=== PATIENT | male | born 1995 | race American Indian/Alaskan Native ===

== ENCOUNTER 2021-09-07 00:37 | Inpatient (IN) | payer SELFPAY ==
[2021-09-07] MEDS ORDERED: ONDANSETRON 4 MG/2 ML INJ IV ONE (01:43)
[2021-09-07] MEDS ORDERED: SODIUM CHLORIDE 0.9% 1000 ML 1,000 ML IV ONE ×2 (01:43→02:50)
--- NOTE | 2021-09-07 01:48 | Emergency Department Report ---
ED General Adult HPI - General Chief complaint: Nausea/Vomiting/Diarrhea Stated complaint: DIABETES, VOMITING PUI?: No Time Seen by Provider: 09/07/21 01:42 Source: patient Mode of arrival: Ambulatory Limitations: No Limitations - History of Present Illness Initial comments: Patient is a 25-year-old male who presents emergency room with complaints of nausea vomiting. Patient states his symptoms are worsening. Patient complains of fatigue. Patient states he is a type I diabetic. Patient states that he has been out of his insulin for 3 days. Patient states post be taking Levemir and NovoLog. Patient states his blood sugar at home was reading high. Patient denies pain. Patient denies chest pain. Patient denies shortness of breath. Patient denies abdominal pain. Patient denies blood in his vomitus. Patient states he is not vaccinated against COVID-19. Patient denies recent travel. Patient denies recent international travel. Patient denies exposure to the novel coronavirus. Patient denies sick contacts. Patient denies fever and chills. Patient denies cough. Patient denies diarrhea. Patient denies coming in contact with anybody with symptoms of the novel coronavirus. -: Sudden Consistency: constant Improves with: rest Worsens with: eating, movement Associated Symptoms: malaise, nausea/vomiting. denies: confusion, chest pain, cough, diaphoresis, fever/chills, headaches, loss of appetite, rash, seizure, shortness of breath, syncope, weakness Treatments Prior to Arrival: none - Related Data Allergies Allergy/AdvReac Type Severity Reaction Status Date / Time No Known Allergies Allergy Verified 09/07/21 01:52 ED Review of Systems ROS: Stated complaint: DIABETES, VOMITING Other details as noted in HPI Constitutional: malaise. denies: chills, fever Eyes: denies: eye pain, eye discharge, vision change ENT: denies: ear pain, throat pain Respiratory: denies: cough, shortness of breath, wheezing Cardiovascular: denies: chest pain, palpitations Endocrine: no symptoms reported Gastrointestinal: nausea, vomiting. denies: abdominal pain, diarrhea Genitourinary: denies: urgency, dysuria Musculoskeletal: denies: back pain, joint swelling, arthralgia Skin: denies: rash, lesions Neurological: denies: headache, weakness, paresthesias Psychiatric: denies: anxiety, depression Hematological/Lymphatic: denies: easy bleeding, easy bruising ED Past Medical Hx - Past Medical History Previous Medical History?: Yes Hx Diabetes: Yes (Type I) - Surgical History Past Surgical History?: No - Family History Family history: no significant - Social History Smoking Status: Never Smoker Substance Use Type: None ED Physical Exam - General Limitations: No Limitations General appearance: alert, in no apparent distress - Head Head exam: Present: atraumatic, normocephalic - Eye Eye exam: Present: normal appearance - ENT ENT exam: Present: mucous membranes dry - Neck Neck exam: Present: normal inspection - Respiratory Respiratory exam: Present: normal lung sounds bilaterally. Absent: respiratory distress, wheezes, rales - Cardiovascular Cardiovascular Exam: Present: regular rate, normal rhythm. Absent: systolic murmur, diastolic murmur, rubs, gallop - GI/Abdominal GI/Abdominal exam: Present: soft, normal bowel sounds. Absent: distended, tenderness, guarding - Rectal Rectal exam: Present: deferred - Extremities Exam Extremities exam: Present: normal inspection - Back Exam Back exam: Present: normal inspection - Neurological Exam Neurological exam: Present: alert, oriented X3 - Psychiatric Psychiatric exam: Present: normal affect, normal mood - Skin Skin exam: Present: warm, dry, intact, normal color. Absent: rash ED Course Vital Signs 09/07/21 09/07/21 09/07/21 01:48 03:06 03:15 Temperature 98.9 F Pulse Rate 89 Respiratory 18 Rate Blood Pressure 123/72 O2 Sat by Pulse 99 97 97 Oximetry 09/07/21 09/07/21 09/07/21 03:31 03:45 04:01 Temperature Pulse Rate Respiratory Rate Blood Pressure 101/44 101/44 101/44 O2 Sat by Pulse 97 97 98 Oximetry 09/07/21 04:13 Temperature Pulse Rate Respiratory Rate Blood Pressure O2 Sat by Pulse 98 Oximetry - Reevaluation(s) Reevaluation #1: I discussed all results with patient. I discussed plan of care with patient. Patient agrees with plan of care and admission. Patient to be admitted to the hospitalist service. 12 units of insulin ordered. Patient already receiving IV fluids. 09/07/21 02:51 Reevaluation #2: Patient blood sugar still elevated. Patient received another 12 units and other liter of fluid. 09/07/21 04:25 - Consultations Consultation #1: Hospitalist consulted for admission. Hospitalist to admit patient. 09/07/21 02:54 ED Medical Decision Making - Lab Data Result diagrams: 09/07/21 01:50 09/07/21 01:50 - Medical Decision Making Patient is a 25-year-old male presents emergency room with intractable nausea vomiting and elevated blood sugar. Patient was insulin. Patient unable to tolerate p.o. intake. Patient had labs done. Patient pH is normal. Patient's chemistry shows acute renal failure. Patient states WBC is elevated most likely secondary to nausea vomiting. Patient given fluids in ER. Patient given 12 units of insulin. Patient given a second dose of 12 units of insulin due to continued elevated blood sugar. Patient blood sugar is improved. Patient admitted to the hospital service for further evaluation and treatment. Critical care time documented due to the multiple reassessments, prolonged time at the bedside, interpretation of diagnostics and labs. - Differential Diagnosis DKA, hyperglycemia, noncompliance, intractable nausea vomiting. Critical Care Time: Yes Critical care time in (mins) excluding proc time.: 35 Critical care attestation.: If time is entered above; I have spent that time in minutes in the direct care of this critically ill patient, excluding procedure time. Critical Care Time: 35 minutes ED Disposition Clinical Impression: Hyperglycemia, Noncompliance Nausea & vomiting Qualifiers: Vomiting type: unspecified Vomiting Intractability: intractable Qualified Code( s): R11.2 - Nausea with vomiting, unspecified Acute renal failure Qualifiers: Acute renal failure type: unspecified Qualified Code(s): N17.9 - Acute kidney failure, unspecified Disposition: ADMITTED INPATIENT Is pt being admited?: Yes Does the pt Need Aspirin: No Condition: Critical Time of Disposition: 02:52
[2021-09-07 02:19] LABS: Hematocrit 41.2 % (35.5-45.6); Hemoglobin 13.8 gm/dl (11.8-15.2); Mean Corpuscular HGB Conc 33 % (32-34); Mean Corpuscular Volume 85 fl (84-94); Platelet Count 278 K/mm3 (140-440); Red Blood Count 4.83 M/mm3 (3.65-5.03); Red Cell Distribution Width 14.6 % (13.2-15.2)
[2021-09-07 02:25] LABS: Alanine Aminotransferase 54 units/L (7-56); Albumin 4.8 g/dL (3.9-5); BUN/Creatinine Ratio 25; Blood Urea Nitrogen 47 mg/dL (9-20); Calcium 9.9 mg/dL (8.4-10.2); Hemolysis Index 1
[2021-09-07 02:26] LABS: Bilirubin,Direct < 0.2 mg/dL (0-0.2)
[2021-09-07] MEDS ORDERED: INSULIN REGULAR, HUMAN 100 UNITS/1 ML IV ONE ×2 (02:49→04:30)
[2021-09-07 03:50] LABS: Total Cells Counted 100
[2021-09-07 03:51] LABS: Platelet Estimate Consistent w Auto; RBC Morphology Normal
[2021-09-07] MEDS ORDERED: oxyCODONE /ACETAMINOPHEN 5-325MG TAB PO PRN (06:04)
[2021-09-07] MEDS ORDERED: DEXTROSE 50% IN WATER (25GM) 50 ML SYRINGE IV PRN (06:04)
[2021-09-07] MEDS ORDERED: ALBUTEROL 2.5 MG/3 ML NEBU IH PRN (06:04)
[2021-09-07] MEDS ORDERED: ONDANSETRON 4 MG/2 ML INJ IV PRN (06:04)
[2021-09-07] MEDS ORDERED: ACETAMINOPHEN 325 MG TAB PO PRN (06:04)
[2021-09-07] MEDS ORDERED: HYDROmorphone 1 MG/1 ML INJ IV PRN (06:04)
--- NOTE | 2021-09-07 06:13 | History and Physical Report ---
History of Present Illness Date of examination: 09/07/21 Date of admission: 09/07/21 04:49 Chief complaint: Hyperglycemia History of present illness: 25-year-old male with history of type 1 diabetes was brought to the hospital because of nausea vomiting and fatigue for last 3 days. Patient states that he has been out of his insulin for 3 days. Patient states post be taking Levemir and NovoLog. Patient states his blood sugar at home was reading high. Patient denies pain. Patient denies chest pain. Patient denies shortness of breath. Patient denies abdominal pain. Patient denies blood in his vomitus. In the emergency room patient is found to have blood glucose of 698. BUN is 47 creatinine 1.9 bicarb 25 anion gap 32. In the emergency room patient's getting IV fluids and get 12 units of insulin.Patient given a second dose of 12 units of insulin due to continued elevated blood sugar. Patient blood sugar is improved. Blood sugar is around 287 Med rec is not available Past History Past Medical History: diabetes Medications and Allergies Allergies Allergy/AdvReac Type Severity Reaction Status Date / Time No Known Allergies Allergy Verified 09/07/21 01:52 Active Meds: Active Medications Acetaminophen (Acetaminophen 325 Mg Tab) 650 mg PO Q4H PRN PRN Reason: Pain MILD(1-3)/Fever >100.5/DELGADO Albuterol (Albuterol 2.5 Mg/3 Ml Nebu) 2.5 mg IH Q4HRT PRN PRN Reason: Shortness Of Breath Albuterol/Ipratropium (Ipratropium/Albuterol Sulfate 3 Ml Ampul.Neb) 1 ampul IH Q6HRT WILVER Dextrose (Dextrose 50% In Water (25gm) 50 Ml Syringe) 50 ml IV Q30MIN PRN; Protocol PRN Reason: Hypoglycemia Famotidine (Famotidine 20 Mg/2 Ml Inj) 20 mg IV BID WILVER Heparin Sodium (Porcine) (Heparin 5,000 Unit/1 Ml Vial) 5,000 unit SUB-Q Q8HR WILVER Hydromorphone HCl (Hydromorphone 1 Mg/1 Ml Inj) 0.5 mg IV Q3H PRN PRN Reason: Pain , Severe (7-10) Sodium Chloride (Nacl 0.9% 1000 Ml) 1,000 mls @ 100 mls/hr IV DIRECT WILVER Insulin Glargine (Insulin Glargine 100 Units/Ml) 15 units SUB-Q QHS WILVER Insulin Human Lispro (Insulin Lispro 100 Unit/Ml) 0 unit SUB-Q ACHS WILVER; Protocol Ondansetron HCl (Ondansetron 4 Mg/2 Ml Inj) 4 mg IV Q8H PRN PRN Reason: Nausea And Vomiting Oxycodone/Acetaminophen (Oxycodone /Acetaminophen 5-325mg Tab) 1 tab PO Q6H PRN PRN Reason: Pain, Moderate (4-6) Sodium Chloride (Sodium Chloride 0.9% 10 Ml Flush Syringe) 10 ml IV BID WILVER Sodium Chloride (Sodium Chloride 0.9% 10 Ml Flush Syringe) 10 ml IV PRN PRN PRN Reason: LINE FLUSH Review of Systems All systems: negative Constitutional: fatigue Gastrointestinal: nausea, vomiting Exam - Constitutional Vitals: Temp Pulse Resp BP Pulse Ox 98.9 F 89 18 101/44 98 09/07/21 01:48 09/07/21 01:48 09/07/21 01:48 09/07/21 04:01 09/07/21 04:13 General appearance: Present: no acute distress, mild distress, well-nourished - EENT Eyes: Present: PERRL ENT: hearing intact, clear oral mucosa - Neck Neck: Present: supple, normal ROM - Respiratory Respiratory effort: normal Respiratory: bilateral: CTA - Cardiovascular Heart Sounds: Present: S1 & S2. Absent: rub, click - Extremities Extremities: pulses symmetrical, No edema Peripheral Pulses: within normal limits - Abdominal General gastrointestinal: Present: soft, non-tender, non-distended, normal bowel sounds Male genitourinary: Present: normal - Integumentary Integumentary: Present: clear, warm, dry - Musculoskeletal Musculoskeletal: gait normal, strength equal bilaterally - Psychiatric Psychiatric: appropriate mood/affect, intact judgment & insight - Neurologic Neurologic: CNII-XII intact, moves all extremities Results - Labs CBC & Chem 7: 09/07/21 01:50 09/07/21 01:50 Labs: Laboratory Last Values WBC 17.1 K/mm3 (4.5-11.0) H 09/07/21 01:50 RBC 4.83 M/mm3 (3.65-5.03) 09/07/21 01:50 Hgb 13.8 gm/dl (11.8-15.2) 09/07/21 01:50 Hct 41.2 % (35.5-45.6) 09/07/21 01:50 MCV 85 fl (84-94) 09/07/21 01:50 MCH 29 pg (28-32) 09/07/21 01:50 MCHC 33 % (32-34) 09/07/21 01:50 RDW 14.6 % (13.2-15.2) 09/07/21 01:50 Plt Count 278 K/mm3 (140-440) 09/07/21 01:50 Add Manual Diff Complete 09/07/21 01:50 Total Counted 100 09/07/21 01:50 Seg Neuts % (Manual) 89.0 % (40.0-70.0) H 09/07/21 01:50 Lymphocytes % (Manual) 8.0 % (13.4-35.0) L 09/07/21 01:50 Monocytes % (Manual) 3.0 % (0.0-7.3) 09/07/21 01:50 Nucleated RBC % Not Reportable 09/07/21 01:50 Seg Neutrophils # Man 15.2 K/mm3 (1.8-7.7) H 09/07/21 01:50 Band Neutrophils # 0.0 K/mm3 09/07/21 01:50 Lymphocytes # (Manual) 1.4 K/mm3 (1.2-5.4) 09/07/21 01:50 Abs React Lymphs (Man) 0.0 K/mm3 09/07/21 01:50 Monocytes # (Manual) 0.5 K/mm3 (0.0-0.8) 09/07/21 01:50 Eosinophils # (Manual) 0.0 K/mm3 (0.0-0.4) 09/07/21 01:50 Basophils # (Manual) 0.0 K/mm3 (0.0-0.1) 09/07/21 01:50 Metamyelocytes # 0.0 K/mm3 09/07/21 01:50 Myelocytes # 0.0 K/mm3 09/07/21 01:50 Promyelocytes # 0.0 K/mm3 09/07/21 01:50 Blast Cells # 0.0 K/mm3 09/07/21 01:50 WBC Morphology Not Reportable 09/07/21 01:50 Hypersegmented Neuts Not Reportable 09/07/21 01:50 Hyposegmented Neuts Not Reportable 09/07/21 01:50 Hypogranular Neuts Not Reportable 09/07/21 01:50 Smudge Cells Not Reportable 09/07/21 01:50 Toxic Granulation Not Reportable 09/07/21 01:50 Toxic Vacuolation Not Reportable 09/07/21 01:50 Dohle Bodies Not Reportable 09/07/21 01:50 Pelger-Huet Anomaly Not Reportable 09/07/21 01:50 Jaylyn Rods Not Reportable 09/07/21 01:50 Platelet Estimate Consistent w auto 09/07/21 01:50 Clumped Platelets Not Reportable 09/07/21 01:50 Plt Clumps, EDTA Not Reportable 09/07/21 01:50 Large Platelets Not Reportable 09/07/21 01:50 Giant Platelets Not Reportable 09/07/21 01:50 Platelet Satelliting Not Reportable 09/07/21 01:50 Plt Morphology Comment Not Reportable 09/07/21 01:50 RBC Morphology Normal 09/07/21 01:50 Dimorphic RBCs Not Reportable 09/07/21 01:50 Polychromasia Not Reportable 09/07/21 01:50 Hypochromasia Not Reportable 09/07/21 01:50 Poikilocytosis Not Reportable 09/07/21 01:50 Anisocytosis Not Reportable 09/07/21 01:50 Microcytosis Not Reportable 09/07/21 01:50 Macrocytosis Not Reportable 09/07/21 01:50 Spherocytes Not Reportable 09/07/21 01:50 Pappenheimer Bodies Not Reportable 09/07/21 01:50 Sickle Cells Not Reportable 09/07/21 01:50 Target Cells Not Reportable 09/07/21 01:50 Tear Drop Cells Not Reportable 09/07/21 01:50 Ovalocytes Not Reportable 09/07/21 01:50 Helmet Cells Not Reportable 09/07/21 01:50 [place] Bodies Not Reportable 09/07/21 01:50 [place] Rings Not Reportable 09/07/21 01:50 [place] Cells Not Reportable 09/07/21 01:50 Bite Cells Not Reportable 09/07/21 01:50 Crenated Cell Not Reportable 09/07/21 01:50 Elliptocytes Not Reportable 09/07/21 01:50 Acanthocytes (Spur) Not Reportable 09/07/21 01:50 Rouleaux Not Reportable 09/07/21 01:50 Hemoglobin C Crystals Not Reportable 09/07/21 01:50 Schistocytes Not Reportable 09/07/21 01:50 Malaria parasites Not Reportable 09/07/21 01:50 Farhad Bodies Not Reportable 09/07/21 01:50 Hem Pathologist Commnt No 09/07/21 01:50 VBG pH 7.367 (7.320-7.420) 09/07/21 02:23 Sodium 144 mmol/L (137-145) 09/07/21 01:50 Potassium 4.5 mmol/L (3.6-5.0) 09/07/21 01:50 Chloride 91.6 mmol/L (98-107) L 09/07/21 01:50 Carbon Dioxide 25 mmol/L (22-30) 09/07/21 01:50 Anion Gap 32 mmol/L 09/07/21 01:50 BUN 47 mg/dL (9-20) H 09/07/21 01:50 Creatinine 1.9 mg/dL (0.8-1.3) H 09/07/21 01:50 Estimated GFR 43 ml/min 09/07/21 01:50 BUN/Creatinine Ratio 25 % 09/07/21 01:50 Glucose 698 mg/dL (75-100) H* 09/07/21 01:50 POC Glucose 287 mg/dL (70-105) H 09/07/21 05:33 Calcium 9.9 mg/dL (8.4-10.2) 09/07/21 01:50 Total Bilirubin 0.60 mg/dL (0.1-1.2) 09/07/21 01:50 Direct Bilirubin < 0.2 mg/dL (0-0.2) 09/07/21 01:50 Indirect Bilirubin 0.4 mg/dL 09/07/21 01:50 AST 16 units/L (5-40) 09/07/21 01:50 ALT 54 units/L (7-56) 09/07/21 01:50 Alkaline Phosphatase 179 units/L (35-129) H 09/07/21 01:50 Total Protein 8.4 g/dL (6.3-8.2) H 09/07/21 01:50 Albumin 4.8 g/dL (3.9-5) 09/07/21 01:50 Albumin/Globulin Ratio 1.3 % 09/07/21 01:50 Assessment and Plan VTE prophylaxis?: Chemical Plan of care discussed with patient/family: Yes - Patient Problems (1) Hyperglycemia Current Visit: Yes Status: Acute Plan to address problem: Admit the patient to the medical floor. IV fluid normal saline at the rate of 100 cc/h. Put the patient on 1800 kcal ADA diet. Accu-Chek before meals and at bedtime with Humalog high dose coverage as. Lantus 15 units subcu nightly. Diabetic education. Recheck CBC BMP in the morning (2) Type 1 diabetes Current Visit: Yes Status: Acute Plan to address problem: Accu-Chek before meals and at bedtime with Humalog high dose coverage as. Lantus 15 units subcu nightly. Diabetic education. Recheck CBC BMP in the morning (3) Acute renal failure Current Visit: Yes Status: Acute Qualifiers: Acute renal failure type: unspecified Qualified Code(s): N17.9 - Acute kidney failure, unspecified Plan to address problem: Avoid nephrotoxic drug. IV fluid normal saline at the rate of 100 cc/h. Renally dose medication. Recheck BMP in the morning (4) Nausea & vomiting Current Visit: Yes Status: Acute Qualifiers: Vomiting type: unspecified Vomiting Intractability: intractable Qualified Code(s): R11.2 - Nausea with vomiting, unspecified Plan to address problem: Normal saline at the rate of 100 cc/h. Pepcid 20 mg every 12 hours. Zofran 4 mg IV every 6 hours as needed (5) Noncompliance Current Visit: Yes Status: Acute Plan to address problem: Patient counseled regarding taking the medication properly. (6) DVT prophylaxis Current Visit: Yes Status: Acute Plan to address problem: Heparin 5000 units subcu every 8 hours for DVT prophylaxis. Pepcid 20 mg IV every 12 hours for GI prophylaxis. Patient is a full code
[2021-09-07] MEDS ORDERED: SODIUM CHLORIDE 0.9% 1000 ML 1,000 ML IV SCH (06:15)
[2021-09-07] MEDS: INSULIN LISPRO 100 UNIT/ML SUB-Q SCH ×5 (07:36→23:28)
[2021-09-07] MEDS: IPRATROPIUM/ALBUTEROL SULFATE 3 ML AMPUL.NEB IH SCH ×3 (07:36→21:09)
[2021-09-07] MEDS: INSULIN GLARGINE 100 UNITS/ML SUB-Q SCH (09:17)
[2021-09-07] MEDS: FAMOTIDINE 20 MG/2 ML INJ IV SCH (09:30)
[2021-09-07] MEDS ORDERED: FAMOTIDINE 20 MG/2 ML INJ IV SCH (10:00)
[2021-09-07] MEDS: HEPARIN 5,000 UNIT/1 ML VIAL SUB-Q SCH ×2 (13:45→23:23)
--- NOTE | 2021-09-07 13:50 | Event Note ---
Date: 09/07/21 Patient admitted today with uncontrolled diabetes mellitus type 1. Reportedly run out of his insulin a few days ago. He was on Levemir 20 units subcu nightly and NovoLog 10 units subcu 3 times daily. 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 Blood glucose has improved. Has been started on Lantus 20 units subcu daily. Restart Humalog 20 SQ AC.. Continue Humalog sliding scale and Accu-Cheks. Nausea and vomiting has resolved. Continue as needed antiemetic Continue IV fluid for acute renal failure. His vital signs are stable. For possible discharge home tomorrow.
[2021-09-07] MEDS ORDERED: INSULIN GLARGINE 100 UNITS/ML SUB-Q SCH (22:00)
[2021-09-08] MEDS: IPRATROPIUM/ALBUTEROL SULFATE 3 ML AMPUL.NEB IH SCH ×4 (05:03→21:26)
[2021-09-08] MEDS: HEPARIN 5,000 UNIT/1 ML VIAL SUB-Q SCH ×3 (05:04→21:49)
[2021-09-08 05:47] LABS: Basophils # (Auto) 0.1 K/mm3 (0.0-0.1); Basophils % (Auto) 0.5 % (0.0-1.8); Eosinophils % (Auto) 0.3 % (0.0-4.3); Hematocrit 34.3 % (35.5-45.6); Hemoglobin 11.6 gm/dl (11.8-15.2); Lymphocytes # (Auto) 2.1 K/mm3 (1.2-5.4); Lymphocytes % (Auto) 17.7 % (13.4-35.0); Mean Corpuscular HGB Conc 34 % (32-34); Mean Corpuscular Volume 84 fl (84-94); Monocytes # (Auto) 0.9 K/mm3 (0.0-0.8); Monocytes % (Auto) 8.1 % (0.0-7.3); Platelet Count 212 K/mm3 (140-440); Red Blood Count 4.07 M/mm3 (3.65-5.03); Red Cell Distribution Width 14.3 % (13.2-15.2)
[2021-09-08 06:19] LABS: Alanine Aminotransferase 35 units/L (7-56); Albumin 3.5 g/dL (3.9-5); Blood Urea Nitrogen 13 mg/dL (9-20); Calcium 8.4 mg/dL (8.4-10.2); Hemolysis Index 6
[2021-09-08 06:23] LABS: BUN/Creatinine Ratio 19
[2021-09-08] MEDS: INSULIN GLARGINE 100 UNITS/ML SUB-Q SCH (08:46)
[2021-09-08] MEDS: INSULIN LISPRO 100 UNIT/ML SUB-Q SCH ×7 (08:47→21:49)
[2021-09-08] MEDS: FAMOTIDINE 20 MG/2 ML INJ IV SCH (10:04)
--- NOTE | 2021-09-08 12:20 | Progress Note ---
Assessment and Plan Assessment and plan: (1) Hyperglycemia Current Visit: Yes Status: Acute Plan to address problem: Admit the patient to the medical floor. IV fluid normal saline at the rate of 100 cc/h. Put the patient on 1800 kcal ADA diet. Accu-Chek before meals and at bedtime with Humalog high dose coverage as. Lantus 15 units subcu nightly. Diabetic education. Recheck CBC BMP in the morning (2) Type 1 diabetes Current Visit: Yes Status: Acute Plan to address problem: Accu-Chek before meals and at bedtime with Humalog high dose coverage as. Lantus 15 units subcu nightly. Diabetic education. Recheck CBC BMP in the morning (3) Acute renal failure Current Visit: Yes Status: Acute Qualifiers: Acute renal failure type: unspecified Qualified Code(s): N17.9 - Acute kidney failure, unspecified Plan to address problem: Avoid nephrotoxic drug. IV fluid normal saline at the rate of 100 cc/h. Evan ally dose medication. Recheck BMP in the morning (4) Nausea & vomiting Current Visit: Yes Status: Acute Qualifiers: Vomiting type: unspecified Vomiting Intractability: intractable Qualified Code(s): R11.2 - Nausea with vomiting, unspecified Plan to address problem: Normal saline at the rate of 100 cc/h. Pepcid 20 mg every 12 hours. Zofran 4 mg IV every 6 hours as needed (5) Noncompliance Current Visit: Yes Status: Acute Plan to address problem: Patient counseled regarding taking the medication properly. (6) DVT prophylaxis Current Visit: Yes Status: Acute Plan to address problem: Heparin 5000 units subcu every 8 hours for DVT prophylaxis. Pepcid 20 mg IV every 12 hours for GI prophylaxis. Patient is a full code 09/08/21 Patient with diabetes, hyperglycemia after ran out of Insulin. Now has fever, low BP. Cont iv fluids. Will check UA, Urine Cx, blood culture. History Interval history: Fever of 101 this am Hospitalist Physical - Physical exam Narrative exam: Gen: Not in acute distress, lying in bed HEENT: Normocephalic, atraumatic Neck: Supple, no JVD Lungs: Clear to auscultation bilaterally, no wheeze Heart: S1 and S2 reg, no murmurs, rubs or gallop Abd:soft, non-tender, non distended, normal bowel sounds Ext: No edema, clubbing or cyanosis Neuro: Awake, alert, oriented X 3, moves all extremities - Constitutional Vitals: Temp Pulse Resp BP Pulse Ox 98.3 F 78 18 95/47 99 09/08/21 07:40 09/08/21 07:40 09/08/21 07:40 09/08/21 07:40 09/08/21 08:18 General appearance: Present: no acute distress, well-nourished Results - Labs CBC & Chem 7: 09/08/21 04:47 09/08/21 04:47 Labs: Laboratory Last Values WBC 11.6 K/mm3 (4.5-11.0) H 09/08/21 04:47 RBC 4.07 M/mm3 (3.65-5.03) 09/08/21 04:47 Hgb 11.6 gm/dl (11.8-15.2) L 09/08/21 04:47 Hct 34.3 % (35.5-45.6) L D 09/08/21 04:47 MCV 84 fl (84-94) 09/08/21 04:47 MCH 29 pg (28-32) 09/08/21 04:47 MCHC 34 % (32-34) 09/08/21 04:47 RDW 14.3 % (13.2-15.2) 09/08/21 04:47 Plt Count 212 K/mm3 (140-440) 09/08/21 04:47 Lymph % (Auto) 17.7 % (13.4-35.0) 09/08/21 04:47 [place] % (Auto) 8.1 % (0.0-7.3) H 09/08/21 04:47 Eos % (Auto) 0.3 % (0.0-4.3) 09/08/21 04:47 Baso % (Auto) 0.5 % (0.0-1.8) 09/08/21 04:47 Lymph # (Auto) 2.1 K/mm3 (1.2-5.4) 09/08/21 04:47 [place] # (Auto) 0.9 K/mm3 (0.0-0.8) H 09/08/21 04:47 Eos # (Auto) 0.0 K/mm3 (0.0-0.4) 09/08/21 04:47 Baso # (Auto) 0.1 K/mm3 (0.0-0.1) 09/08/21 04:47 Add Manual Diff Complete 09/07/21 01:50 Total Counted 100 09/07/21 01:50 Seg Neutrophils % 73.4 % (40.0-70.0) H 09/08/21 04:47 Seg Neuts % (Manual) 89.0 % (40.0-70.0) H 09/07/21 01:50 Lymphocytes % (Manual) 8.0 % (13.4-35.0) L 09/07/21 01:50 Monocytes % (Manual) 3.0 % (0.0-7.3) 09/07/21 01:50 Nucleated RBC % Not Reportable 09/07/21 01:50 Seg Neutrophils # 8.5 K/mm3 (1.8-7.7) H 09/08/21 04:47 Seg Neutrophils # Man 15.2 K/mm3 (1.8-7.7) H 09/07/21 01:50 Band Neutrophils # 0.0 K/mm3 09/07/21 01:50 Lymphocytes # (Manual) 1.4 K/mm3 (1.2-5.4) 09/07/21 01:50 Abs React Lymphs (Man) 0.0 K/mm3 09/07/21 01:50 Monocytes # (Manual) 0.5 K/mm3 (0.0-0.8) 09/07/21 01:50 Eosinophils # (Manual) 0.0 K/mm3 (0.0-0.4) 09/07/21 01:50 Basophils # (Manual) 0.0 K/mm3 (0.0-0.1) 09/07/21 01:50 Metamyelocytes # 0.0 K/mm3 09/07/21 01:50 Myelocytes # 0.0 K/mm3 09/07/21 01:50 Promyelocytes # 0.0 K/mm3 09/07/21 01:50 Blast Cells # 0.0 K/mm3 09/07/21 01:50 WBC Morphology Not Reportable 09/07/21 01:50 Hypersegmented Neuts Not Reportable 09/07/21 01:50 Hyposegmented Neuts Not Reportable 09/07/21 01:50 Hypogranular Neuts Not Reportable 09/07/21 01:50 Smudge Cells Not Reportable 09/07/21 01:50 Toxic Granulation Not Reportable 09/07/21 01:50 Toxic Vacuolation Not Reportable 09/07/21 01:50 Dohle Bodies Not Reportable 09/07/21 01:50 Pelger-Huet Anomaly Not Reportable 09/07/21 01:50 Jaylyn Rods Not Reportable 09/07/21 01:50 Platelet Estimate Consistent w auto 09/07/21 01:50 Clumped Platelets Not Reportable 09/07/21 01:50 Plt Clumps, EDTA Not Reportable 09/07/21 01:50 Large Platelets Not Reportable 09/07/21 01:50 Giant Platelets Not Reportable 09/07/21 01:50 Platelet Satelliting Not Reportable 09/07/21 01:50 Plt Morphology Comment Not Reportable 09/07/21 01:50 RBC Morphology Normal 09/07/21 01:50 Dimorphic RBCs Not Reportable 09/07/21 01:50 Polychromasia Not Reportable 09/07/21 01:50 Hypochromasia Not Reportable 09/07/21 01:50 Poikilocytosis Not Reportable 09/07/21 01:50 Anisocytosis Not Reportable 09/07/21 01:50 Microcytosis Not Reportable 09/07/21 01:50 Macrocytosis Not Reportable 09/07/21 01:50 Spherocytes Not Reportable 09/07/21 01:50 Pappenheimer Bodies Not Reportable 09/07/21 01:50 Sickle Cells Not Reportable 09/07/21 01:50 Target Cells Not Reportable 09/07/21 01:50 Tear Drop Cells Not Reportable 09/07/21 01:50 Ovalocytes Not Reportable 09/07/21 01:50 Helmet Cells Not Reportable 09/07/21 01:50 [place] Bodies Not Reportable 09/07/21 01:50 [place] Rings Not Reportable 09/07/21 01:50 [place] Cells Not Reportable 09/07/21 01:50 Bite Cells Not Reportable 09/07/21 01:50 Crenated Cell Not Reportable 09/07/21 01:50 Elliptocytes Not Reportable 09/07/21 01:50 Acanthocytes (Spur) Not Reportable 09/07/21 01:50 Rouleaux Not Reportable 09/07/21 01:50 Hemoglobin C Crystals Not Reportable 09/07/21 01:50 Schistocytes Not Reportable 09/07/21 01:50 Malaria parasites Not Reportable 09/07/21 01:50 Farhad Bodies Not Reportable 09/07/21 01:50 Hem Pathologist Commnt No 09/07/21 01:50 VBG pH 7.367 (7.320-7.420) 09/07/21 02:23 Sodium 140 mmol/L (137-145) 09/08/21 04:47 Potassium 3.3 mmol/L (3.6-5.0) L D 09/08/21 04:47 Chloride 98.5 mmol/L (98-107) 09/08/21 04:47 Carbon Dioxide 28 mmol/L (22-30) 09/08/21 04:47 Anion Gap 17 mmol/L 09/08/21 04:47 BUN 13 mg/dL (9-20) 09/08/21 04:47 Creatinine 0.7 mg/dL (0.8-1.3) L D 09/08/21 04:47 Estimated GFR > 60 ml/min 09/08/21 04:47 BUN/Creatinine Ratio 19 % 09/08/21 04:47 Glucose 244 mg/dL (75-100) H 09/08/21 04:47 POC Glucose 210 mg/dL (70-105) H 09/08/21 11:07 Hemoglobin A1c 12.8 % (4-6) H 09/08/21 04:47 Calcium 8.4 mg/dL (8.4-10.2) D 09/08/21 04:47 Total Bilirubin 1.10 mg/dL (0.1-1.2) 09/08/21 04:47 Direct Bilirubin < 0.2 mg/dL (0-0.2) 09/07/21 01:50 Indirect Bilirubin 0.4 mg/dL 09/07/21 01:50 AST 21 units/L (5-40) 09/08/21 04:47 ALT 35 units/L (7-56) 09/08/21 04:47 Alkaline Phosphatase 128 units/L (35-129) 09/08/21 04:47 Total Protein 6.6 g/dL (6.3-8.2) D 09/08/21 04:47 Albumin 3.5 g/dL (3.9-5) L 09/08/21 04:47 Albumin/Globulin Ratio 1.1 % 09/08/21 04:47 Caicedo/IV: Voiding Method Toilet Active Medications - Current Medications Current Medications: Generic Name Dose Route Start Last Admin Trade Name Freq PRN Reason Stop Dose Admin Acetaminophen 650 mg 09/07/21 06:04 09/08/21 05:04 Acetaminophen 325 Mg Tab PO 650 mg Q4H PRN Administration Pain MILD(1-3)/Fever >100.5/DELGADO Albuterol 2.5 mg 09/07/21 06:04 Albuterol 2.5 Mg/3 Ml Nebu IH Q4HRT PRN Shortness Of Breath Albuterol/Ipratropium 1 ampul 09/07/21 08:00 09/08/21 11:41 Ipratropium/Albuterol Sulfate 3 Ml Ampul.Neb IH Not Given Q6HRT WILVER Dextrose 50 ml 09/07/21 06:04 Dextrose 50% In Water (25gm) 50 Ml Syringe IV Q30MIN PRN Hypoglycemia Protocol Famotidine 20 mg 09/07/21 10:00 09/08/21 10:04 Famotidine 20 Mg/2 Ml Inj IV 20 mg DAILY WILVER Administration Heparin Sodium (Porcine) 5,000 unit 09/07/21 14:00 09/08/21 05:04 Heparin 5,000 Unit/1 Ml Vial SUB-Q 5,000 unit Q8HR WILVER Administration Hydromorphone HCl 0.5 mg 09/07/21 06:04 Hydromorphone 1 Mg/1 Ml Inj IV Q3H PRN Pain , Severe (7-10) Sodium Chloride 1,000 mls @ 100 mls/hr 09/07/21 06:15 Nacl 0.9% 1000 Ml IV DIRECT WILVER Insulin Glargine 20 units 09/07/21 09:00 09/08/21 08:46 Insulin Glargine 100 Units/Ml SUB-Q 20 units QAMDIAB WILVER Administration Insulin Human Lispro 0 unit 09/07/21 07:30 09/08/21 08:47 Insulin Lispro 100 Unit/Ml SUB-Q 8 unit ACHS WILVER Administration Protocol Insulin Human Lispro 10 unit 09/07/21 16:30 09/08/21 08:47 Insulin Lispro 100 Unit/Ml SUB-Q 10 unit AC WILVER Administration Ondansetron HCl 4 mg 09/07/21 06:04 Ondansetron 4 Mg/2 Ml Inj IV Q8H PRN Nausea And Vomiting Oxycodone/Acetaminophen 1 tab 09/07/21 06:04 Oxycodone /Acetaminophen 5-325mg Tab PO Q6H PRN Pain, Moderate (4-6) Potassium Chloride 40 meq 09/08/21 12:00 Potassium Chloride Er 20 Meq Tab PO 09/08/21 16:01 Q4H WILVER Sodium Chloride 10 ml 09/07/21 10:00 09/08/21 10:04 Sodium Chloride 0.9% 10 Ml Flush Syringe IV 10 ml BID WILVER Administration Sodium Chloride 10 ml 09/07/21 06:04 Sodium Chloride 0.9% 10 Ml Flush Syringe IV PRN PRN LINE FLUSH Nutrition/Malnutrition Assess - Dietary Evaluation Nutrition/Malnutrition Findings: Nutrition Notes Start: 09/07/21 15:27 Freq: Status: Active Protocol: Document 09/07/21 15:27 CLARITZA (Rec: 09/07/21 15:52 CLARITZA [email or web address]) Nutrition Notes Need for Assessment generated from: Education Initial or Follow up Assessment Current Diagnosis Diabetes Other Pertinent Diagnosis Nausea, Vomiting, Diarrhea, Type 1 diabetes. Current Diet Cardiac/Consistent Carbohydrate Diet (since B ). Labs/Tests 09/07: Cl 91.6, BUN 47, Cr 1.9 , Glu 698. Pertinent Medications 09/07: Unremarkable. Height 5 ft 2 in Weight 58.967 kg [place] Body Weight (kg) 53.63 BMI 23.8 Weight Status Appropriate Subjective/Other Information No information available on acceptance of food, % PO intake of meals, hydration, and BM at the time. Percent of energy/protein needs met: Prescribed Cardiac/Consistent Carbohydrate Diet provides enrgy/protein needs (1977 Kcal /86 G) during LOS. Burn Absent Trauma Absent GI Symptoms Nausea,Vomiting Food Allergy No Skin Integrity/Comment Integumentary; clear, warm, dry. Minimum of two criteria No physical signs of malnutrition #1 Nutrition Diagnosis No nutrition diagnosis at this time Comments: Pt states skipping insulin doses for few days, according to progress notes. Educational material will be offered when Pt is assigned to a room. Is patient on ventilator? No Is Patient Ambulatory and/or Out of Bed Yes REE-([place]-St. Jeor-ambulatory/OOB) [ 1890.096 [id number]] Kcal/Kg value to use for calculation 30 Approximate Energy Requirements Using 1769 kcal/Kg Calculation Used for Recommendations Kcal/kg Additional Notes Protein: 0.8-1.0 g/Kg/day; 43- 54 g/day; 172-216 Kcal/day ( from IBW). Fluids: 1.0 ml/day, or as per MD. Nutrition Intervention Change Diet Order: Continue Cardiac/Consistent Carbohydrate Diet. Goal #1 Provide Pt with educational tools to elicit behavioral changes towards a healthy lifestyle. Goal #2 Maintain body weight within +/ -3% of current BWt during LOS. Goal #3 Reach and maintain acceptable chemistry lab values during LOS. Follow-Up By: 09/11/21 Additional Comments Educational material will be offered when Pt is assigned to a room. Continue monitoring accetance of food, % PO intake of meals, hydration, and BM.
[2021-09-08] MEDS: POTASSIUM CHLORIDE ER 20 MEQ TAB PO SCH ×2 (12:22→16:09)
--- NOTE | 2021-09-08 13:08 | XRay Report ---
CHEST 1 VIEW INDICATION / CLINICAL INFORMATION: fever. COMPARISON: None available. FINDINGS: SUPPORT DEVICES: None. HEART / MEDIASTINUM: No significant abnormality. LUNGS / PLEURA: Mild interstitial prominence is present bilaterally without focality. No focal area o f consolidation or pleural effusion. Findings could indicate underlying viral pneumonia. No pneumotho rax. ADDITIONAL FINDINGS: No significant additional findings. IMPRESSION: 1. Nonspecific mild bilateral interstitial lung disease. Correlation with Covid status is recommended , if not already performed. Signer Name: Jaqueline Arellano MD Signed: 09/08/2021 1:03 PM Workstation Name: [id number]
[2021-09-09] MEDS: HEPARIN 5,000 UNIT/1 ML VIAL SUB-Q SCH ×2 (06:02→14:00)
[2021-09-09 08:27] LABS: Hematocrit 35.3 % (35.5-45.6); Hemoglobin 12.1 gm/dl (11.8-15.2); Mean Corpuscular HGB Conc 34 % (32-34); Mean Corpuscular Volume 84 fl (84-94); Platelet Count 217 K/mm3 (140-440); Red Blood Count 4.22 M/mm3 (3.65-5.03); Red Cell Distribution Width 14.4 % (13.2-15.2)
[2021-09-09 08:49] LABS: Blood Urea Nitrogen 9 mg/dL (9-20); Calcium 8.3 mg/dL (8.4-10.2); Hemolysis Index 6
[2021-09-09] MEDS: FAMOTIDINE 20 MG/2 ML INJ IV SCH (09:02)
[2021-09-09] MEDS: INSULIN GLARGINE 100 UNITS/ML SUB-Q SCH (09:02)
[2021-09-09] MEDS: INSULIN LISPRO 100 UNIT/ML SUB-Q SCH ×4 (09:03→13:37)
[2021-09-09 09:09] LABS: BUN/Creatinine Ratio 15
[2021-09-09] MEDS: IPRATROPIUM/ALBUTEROL SULFATE 3 ML AMPUL.NEB IH SCH (09:42)
[2021-09-09] MEDS: POTASSIUM CHLORIDE ER 20 MEQ TAB PO SCH ×2 (09:54→13:47)
[2021-09-09 10:03] VITALS: BP 127/64
--- NOTE | 2021-09-09 13:50 | Progress Note ---
Assessment and Plan Assessment and plan: (1) Hyperglycemia Current Visit: Yes Status: Acute Plan to address problem: Admit the patient to the medical floor. IV fluid normal saline at the rate of 100 cc/h. Put the patient on 1800 kcal ADA diet. Accu-Chek before meals and at bedtime with Humalog high dose coverage as. Lantus 15 units subcu nightly. Diabetic education. Recheck CBC BMP in the morning (2) Type 1 diabetes Current Visit: Yes Status: Acute Plan to address problem: Accu-Chek before meals and at bedtime with Humalog high dose coverage as. Lantus 15 units subcu nightly. Diabetic education. Recheck CBC BMP in the morning (3) Acute renal failure Current Visit: Yes Status: Acute Qualifiers: Acute renal failure type: unspecified Qualified Code(s): N17.9 - Acute kidney failure, unspecified Plan to address problem: Avoid nephrotoxic drug. IV fluid normal saline at the rate of 100 cc/h. Evan ally dose medication. Recheck BMP in the morning (4) Nausea & vomiting Current Visit: Yes Status: Acute Qualifiers: Vomiting type: unspecified Vomiting Intractability: intractable Qualified Code(s): R11.2 - Nausea with vomiting, unspecified Plan to address problem: Normal saline at the rate of 100 cc/h. Pepcid 20 mg every 12 hours. Zofran 4 mg IV every 6 hours as needed (5) Noncompliance Current Visit: Yes Status: Acute Plan to address problem: Patient counseled regarding taking the medication properly. (6) DVT prophylaxis Current Visit: Yes Status: Acute Plan to address problem: Heparin 5000 units subcu every 8 hours for DVT prophylaxis. Pepcid 20 mg IV every 12 hours for GI prophylaxis. Patient is a full code 09/08/21 Patient with diabetes, hyperglycemia after ran out of Insulin. Now has fever, low BP. Cont iv fluids. Will check UA, Urine Cx, blood culture. 09/09/21 Patient with diabetes mellitus. He ran out of Insulin for few days. Fever yesterday, now resolved. Has hypoglycemia with glucose of 29 today so will not discharge today. Will adjust medications, hopefully dc home tomorrow. History Interval history: Fever of 101 yesterday, now resolved Blood glucose of 29 today Hospitalist Physical - Physical exam Narrative exam: Gen: Not in acute distress, lying in bed HEENT: Normocephalic, atraumatic Neck: Supple, no JVD Lungs: Clear to auscultation bilaterally, no wheeze Heart: S1 and S2 reg, no murmurs, rubs or gallop Abd:soft, non-tender, non distended, normal bowel sounds Ext: No edema, clubbing or cyanosis Neuro: Awake, alert, oriented X 3, moves all extremities - Constitutional Vitals: Temp Pulse Resp BP Pulse Ox 97.9 F 73 18 127/64 99 09/09/21 08:22 09/09/21 08:22 09/09/21 08:22 09/09/21 08:22 09/09/21 08:32 General appearance: Present: no acute distress, well-nourished Results - Labs CBC & Chem 7: 09/09/21 08:07 09/09/21 08:07 Labs: Laboratory Last Values WBC 5.6 K/mm3 (4.5-11.0) 09/09/21 08:07 RBC 4.22 M/mm3 (3.65-5.03) 09/09/21 08:07 Hgb 12.1 gm/dl (11.8-15.2) 09/09/21 08:07 Hct 35.3 % (35.5-45.6) L 09/09/21 08:07 MCV 84 fl (84-94) 09/09/21 08:07 MCH 29 pg (28-32) 09/09/21 08:07 MCHC 34 % (32-34) 09/09/21 08:07 RDW 14.4 % (13.2-15.2) 09/09/21 08:07 Plt Count 217 K/mm3 (140-440) 09/09/21 08:07 Lymph % (Auto) 17.7 % (13.4-35.0) 09/08/21 04:47 Daniels % (Auto) 8.1 % (0.0-7.3) H 09/08/21 04:47 Eos % (Auto) 0.3 % (0.0-4.3) 09/08/21 04:47 Baso % (Auto) 0.5 % (0.0-1.8) 09/08/21 04:47 Lymph # (Auto) 2.1 K/mm3 (1.2-5.4) 09/08/21 04:47 Daniels # (Auto) 0.9 K/mm3 (0.0-0.8) H 09/08/21 04:47 Eos # (Auto) 0.0 K/mm3 (0.0-0.4) 09/08/21 04:47 Baso # (Auto) 0.1 K/mm3 (0.0-0.1) 09/08/21 04:47 Add Manual Diff Complete 09/07/21 01:50 Total Counted 100 09/07/21 01:50 Seg Neutrophils % 73.4 % (40.0-70.0) H 09/08/21 04:47 Seg Neuts % (Manual) 89.0 % (40.0-70.0) H 09/07/21 01:50 Lymphocytes % (Manual) 8.0 % (13.4-35.0) L 09/07/21 01:50 Monocytes % (Manual) 3.0 % (0.0-7.3) 09/07/21 01:50 Nucleated RBC % Not Reportable 09/07/21 01:50 Seg Neutrophils # 8.5 K/mm3 (1.8-7.7) H 09/08/21 04:47 Seg Neutrophils # Man 15.2 K/mm3 (1.8-7.7) H 09/07/21 01:50 Band Neutrophils # 0.0 K/mm3 09/07/21 01:50 Lymphocytes # (Manual) 1.4 K/mm3 (1.2-5.4) 09/07/21 01:50 Abs React Lymphs (Man) 0.0 K/mm3 09/07/21 01:50 Monocytes # (Manual) 0.5 K/mm3 (0.0-0.8) 09/07/21 01:50 Eosinophils # (Manual) 0.0 K/mm3 (0.0-0.4) 09/07/21 01:50 Basophils # (Manual) 0.0 K/mm3 (0.0-0.1) 09/07/21 01:50 Metamyelocytes # 0.0 K/mm3 09/07/21 01:50 Myelocytes # 0.0 K/mm3 09/07/21 01:50 Promyelocytes # 0.0 K/mm3 09/07/21 01:50 Blast Cells # 0.0 K/mm3 09/07/21 01:50 WBC Morphology Not Reportable 09/07/21 01:50 Hypersegmented Neuts Not Reportable 09/07/21 01:50 Hyposegmented Neuts Not Reportable 09/07/21 01:50 Hypogranular Neuts Not Reportable 09/07/21 01:50 Smudge Cells Not Reportable 09/07/21 01:50 Toxic Granulation Not Reportable 09/07/21 01:50 Toxic Vacuolation Not Reportable 09/07/21 01:50 Dohle Bodies Not Reportable 09/07/21 01:50 Pelger-Huet Anomaly Not Reportable 09/07/21 01:50 Jaylyn Rods Not Reportable 09/07/21 01:50 Platelet Estimate Consistent w auto 09/07/21 01:50 Clumped Platelets Not Reportable 09/07/21 01:50 Plt Clumps, EDTA Not Reportable 09/07/21 01:50 Large Platelets Not Reportable 09/07/21 01:50 Giant Platelets Not Reportable 09/07/21 01:50 Platelet Satelliting Not Reportable 09/07/21 01:50 Plt Morphology Comment Not Reportable 09/07/21 01:50 RBC Morphology Normal 09/07/21 01:50 Dimorphic RBCs Not Reportable 09/07/21 01:50 Polychromasia Not Reportable 09/07/21 01:50 Hypochromasia Not Reportable 09/07/21 01:50 Poikilocytosis Not Reportable 09/07/21 01:50 Anisocytosis Not Reportable 09/07/21 01:50 Microcytosis Not Reportable 09/07/21 01:50 Macrocytosis Not Reportable 09/07/21 01:50 Spherocytes Not Reportable 09/07/21 01:50 Pappenheimer Bodies Not Reportable 09/07/21 01:50 Sickle Cells Not Reportable 09/07/21 01:50 Target Cells Not Reportable 09/07/21 01:50 Tear Drop Cells Not Reportable 09/07/21 01:50 Ovalocytes Not Reportable 09/07/21 01:50 Helmet Cells Not Reportable 09/07/21 01:50 [place] Bodies Not Reportable 09/07/21 01:50 [place] Rings Not Reportable 09/07/21 01:50 Sarah Cells Not Reportable 09/07/21 01:50 Bite Cells Not Reportable 09/07/21 01:50 Crenated Cell Not Reportable 09/07/21 01:50 Elliptocytes Not Reportable 09/07/21 01:50 Acanthocytes (Spur) Not Reportable 09/07/21 01:50 Rouleaux Not Reportable 09/07/21 01:50 Hemoglobin C Crystals Not Reportable 09/07/21 01:50 Schistocytes Not Reportable 09/07/21 01:50 Malaria parasites Not Reportable 09/07/21 01:50 Farhad Bodies Not Reportable 09/07/21 01:50 Hem Pathologist Commnt No 09/07/21 01:50 VBG pH 7.367 (7.320-7.420) 09/07/21 02:23 Sodium 133 mmol/L (137-145) L 09/09/21 08:07 Potassium 3.5 mmol/L (3.6-5.0) L 09/09/21 08:07 Chloride 94.9 mmol/L (98-107) L 09/09/21 08:07 Carbon Dioxide 28 mmol/L (22-30) 09/09/21 08:07 Anion Gap 14 mmol/L 09/09/21 08:07 BUN 9 mg/dL (9-20) 09/09/21 08:07 Creatinine 0.6 mg/dL (0.8-1.3) L 09/09/21 08:07 Estimated GFR > 60 ml/min 09/09/21 08:07 BUN/Creatinine Ratio 15 % 09/09/21 08:07 Glucose 338 mg/dL (75-100) H 09/09/21 08:07 POC Glucose 173 mg/dL (70-105) H 09/08/21 20:22 Hemoglobin A1c 12.8 % (4-6) H 09/08/21 04:47 Calcium 8.3 mg/dL (8.4-10.2) L 09/09/21 08:07 Total Bilirubin 1.10 mg/dL (0.1-1.2) 09/08/21 04:47 Direct Bilirubin < 0.2 mg/dL (0-0.2) 09/07/21 01:50 Indirect Bilirubin 0.4 mg/dL 09/07/21 01:50 AST 21 units/L (5-40) 09/08/21 04:47 ALT 35 units/L (7-56) 09/08/21 04:47 Alkaline Phosphatase 128 units/L (35-129) 09/08/21 04:47 Total Protein 6.6 g/dL (6.3-8.2) D 09/08/21 04:47 Albumin 3.5 g/dL (3.9-5) L 09/08/21 04:47 Albumin/Globulin Ratio 1.1 % 09/08/21 04:47 Microbiology: Microbiology 09/08/21 13:58 Peripheral/Venous Blood Culture - Preliminary Culture in Progress 09/08/21 13:58 Peripheral/Venous Blood Culture - Preliminary Culture in Progress Caicedo/IV: Voiding Method Toilet Active Medications - Current Medications Current Medications: Generic Name Dose Route Start Last Admin Trade Name Freq PRN Reason Stop Dose Admin Acetaminophen 650 mg 09/07/21 06:04 09/08/21 05:04 Acetaminophen 325 Mg Tab PO 650 mg Q4H PRN Administration Pain MILD(1-3)/Fever >100.5/DELGADO Albuterol 2.5 mg 09/07/21 06:04 Albuterol 2.5 Mg/3 Ml Nebu IH Q4HRT PRN Shortness Of Breath Albuterol/Ipratropium 1 ampul 09/07/21 08:00 09/09/21 09:42 Ipratropium/Albuterol Sulfate 3 Ml Ampul.Neb IH Not Given Q6HRT WILVER Dextrose 50 ml 09/07/21 06:04 09/09/21 13:48 Dextrose 50% In Water (25gm) 50 Ml Syringe IV 50 ml Q30MIN PRN Administration Hypoglycemia Protocol Famotidine 20 mg 09/07/21 10:00 09/09/21 09:02 Famotidine 20 Mg/2 Ml Inj IV 20 mg DAILY WILVER Administration Heparin Sodium (Porcine) 5,000 unit 09/07/21 14:00 09/09/21 06:02 Heparin 5,000 Unit/1 Ml Vial SUB-Q Not Given Q8HR WILVER Hydromorphone HCl 0.5 mg 09/07/21 06:04 Hydromorphone 1 Mg/1 Ml Inj IV Q3H PRN Pain , Severe (7-10) Sodium Chloride 1,000 mls @ 100 mls/hr 09/07/21 06:15 09/09/21 09:04 Nacl 0.9% 1000 Ml IV 100 mls/hr DIRECT WILVER Administration Insulin Glargine 20 units 09/07/21 09:00 09/09/21 09:02 Insulin Glargine 100 Units/Ml SUB-Q 20 units QAMDIAB WILVER Administration Insulin Human Lispro 0 unit 09/07/21 07:30 09/09/21 13:37 Insulin Lispro 100 Unit/Ml SUB-Q Not Given ACHS WILVER Protocol Insulin Human Lispro 10 unit 09/07/21 16:30 09/09/21 13:37 Insulin Lispro 100 Unit/Ml SUB-Q Not Given AC WILVER Ondansetron HCl 4 mg 09/07/21 06:04 Ondansetron 4 Mg/2 Ml Inj IV Q8H PRN Nausea And Vomiting Oxycodone/Acetaminophen 1 tab 09/07/21 06:04 Oxycodone /Acetaminophen 5-325mg Tab PO Q6H PRN Pain, Moderate (4-6) Potassium Chloride 40 meq 09/09/21 10:00 09/09/21 13:47 Potassium Chloride Er 20 Meq Tab PO 09/09/21 14:01 40 meq Q4H WILVER Administration Sodium Chloride 10 ml 09/07/21 10:00 09/09/21 09:03 Sodium Chloride 0.9% 10 Ml Flush Syringe IV 10 ml BID WILVER Administration Sodium Chloride 10 ml 09/07/21 06:04 Sodium Chloride 0.9% 10 Ml Flush Syringe IV PRN PRN LINE FLUSH Nutrition/Malnutrition Assess - Dietary Evaluation Nutrition/Malnutrition Findings: Nutrition Notes Start: 09/07/21 15:27 Freq: Status: Active Protocol: Document 09/07/21 15:27 CLARITZA (Rec: 09/07/21 15:52 CLARITZA [id number]) Nutrition Notes Need for Assessment generated from: Education Initial or Follow up Assessment Current Diagnosis Diabetes Other Pertinent Diagnosis Nausea, Vomiting, Diarrhea, Type 1 diabetes. Current Diet Cardiac/Consistent Carbohydrate Diet (since B ). Labs/Tests 09/07: Cl 91.6, BUN 47, Cr 1.9 , Glu 698. Pertinent Medications 09/07: Unremarkable. Height 5 ft 2 in Weight 58.967 kg [place] Body Weight (kg) 53.63 BMI 23.8 Weight Status Appropriate Subjective/Other Information No information available on acceptance of food, % PO intake of meals, hydration, and BM at the time. Percent of energy/protein needs met: Prescribed Cardiac/Consistent Carbohydrate Diet provides enrgy/protein needs (1977 Kcal /86 G) during LOS. Burn Absent Trauma Absent GI Symptoms Nausea,Vomiting Food Allergy No Skin Integrity/Comment Integumentary; clear, warm, dry. Minimum of two criteria No physical signs of malnutrition #1 Nutrition Diagnosis No nutrition diagnosis at this time Comments: Pt states skipping insulin doses for few days, according to progress notes. Educational material will be offered when Pt is assigned to a room. Is patient on ventilator? No Is Patient Ambulatory and/or Out of Bed Yes REE-([place]-St. Jeor-ambulatory/OOB) [ 1890.096 NUTR.[id number]] Kcal/Kg value to use for calculation 30 Approximate Energy Requirements Using 1769 kcal/Kg Calculation Used for Recommendations Kcal/kg Additional Notes Protein: 0.8-1.0 g/Kg/day; 43- 54 g/day; 172-216 Kcal/day ( from IBW). Fluids: 1.0 ml/day, or as per MD. Nutrition Intervention Change Diet Order: Continue Cardiac/Consistent Carbohydrate Diet. Goal #1 Provide Pt with educational tools to elicit behavioral changes towards a healthy lifestyle. Goal #2 Maintain body weight within +/ -3% of current BWt during LOS. Goal #3 Reach and maintain acceptable chemistry lab values during LOS. Follow-Up By: 09/11/21 Additional Comments Educational material will be offered when Pt is assigned to a room. Continue monitoring accetance of food, % PO intake of meals, hydration, and BM.
[2021-09-09 14:02] LABS: Bilirubin,Urine NEG (Negative); Blood,Urine NEG (Negative); Color,Urine Yellow (Yellow); Protein,Urine <15 mg/dL mg/dL (Negative); RBC,Urine < 1.0 /HPF (0.0-6.0); Urobilinogen,Urine < 2.0 mg/dL (<2.0); WBC,Urine < 1.0 /HPF (0.0-6.0)
--- NOTE | 2021-09-09 15:46 | Discharge Summary ---
Providers - Providers Date of Admission: 09/08/21 14:56 Date of discharge: 09/09/21 Attending physician: BETO DUNN 09/07/21 06:04 Consult to Dietitian/Nutrition [CONS] Routine Physician Instructions: Reason For Exam: Reason for Consult: Diet education Primary care physician: RE DYE HAND Hospitalization Condition: Stable Hospital course: Patient is 25 yo with history of type 1 diabetes was brought to the hospital because of nausea vomiting and fatigue for 3 days. Patient stated that he has been out of his insulin for 3 days. Patient stated he ran out of Insulin for few days. Patient states his blood sugar at home was reading high. Patient denies pain. Patient denies chest pain. Patient denies shortness of breath. Patient denies abdominal pain. Patient denies blood in his vomitus. He was seen and evaluated in the ED. He was found to have blood glucose of 698. BUN is 47 creatinine 1.9 bicarb 25 anion gap 32. In the emergency room patient was given IV fluids and Insulin. Blood glucose improved, so was admitted to Telemetry. With iv fluids, Insulin, his glucose improved, so was discharged home on 09/09/21. (1) Hyperglycemia Current Visit: Yes Status: Acute Plan to address problem: Admit the patient to the medical floor. IV fluid normal saline at the rate of 100 cc/h. Put the patient on 1800 kcal ADA diet. Accu-Chek before meals and at bedtime with Humalog high dose coverage as. Lantus 15 units subcu nightly. Diabetic education. Recheck CBC BMP in the morning (2) Type 1 diabetes Current Visit: Yes Status: Acute Plan to address problem: Accu-Chek before meals and at bedtime with Humalog high dose coverage as. Lantus 15 units subcu nightly. Diabetic education. Recheck CBC BMP in the morning (3) Acute renal failure Current Visit: Yes Status: Acute Qualifiers: Acute renal failure type: unspecified Qualified Code(s): N17.9 - Acute kidney failure, unspecified Plan to address problem: Avoid nephrotoxic drug. IV fluid normal saline at the rate of 100 cc/h. Renally dose medication. Recheck BMP in the morning (4) Nausea & vomiting Current Visit: Yes Status: Acute Qualifiers: Vomiting type: unspecified Vomiting Intractability: intractable Qualified Code(s): R11.2 - Nausea with vomiting, unspecified Plan to address problem: Normal saline at the rate of 100 cc/h. Pepcid 20 mg every 12 hours. Zofran 4 mg IV every 6 hours as needed (5) Noncompliance Current Visit: Yes Status: Acute Plan to address problem: Patient counseled regarding taking the medication properly. (6) DVT prophylaxis Current Visit: Yes Status: Acute Plan to address problem: Heparin 5000 units subcu every 8 hours for DVT prophylaxis. Pepcid 20 mg IV every 12 hours for GI prophylaxis. Patient is a full code 09/08/21 Patient with diabetes, hyperglycemia after ran out of Insulin. Now has fever, low BP. Cont iv fluids. Will check UA, Urine Cx, blood culture. 09/09/21 Patient with diabetes mellitus. He ran out of Insulin for few days. Fever yesterday, now resolved. patient stable to go home today. Disposition: HOME / SELF CARE / HOMELESS Final Discharge Diagnosis (Prints w/discharge instructions): 1.Diabetes mellitus uncontrolled Time spent for discharge: 35 mins - Discharge Diagnoses (1) Hyperglycemia Status: Acute (2) Noncompliance Status: Acute (3) Type 1 diabetes Status: Acute Core Measure Documentation - Palliative Care Palliative Care/ Comfort Measures: Not Applicable - Core Measures Any of the following diagnoses?: none Exam - Constitutional Vitals: Temp Pulse Resp BP Pulse Ox 97.9 F 73 18 127/64 99 09/09/21 08:22 09/09/21 08:22 09/09/21 08:22 09/09/21 08:22 09/09/21 08:32 Plan Activity: advance as tolerated Diet: low fat, low cholesterol, diabetic Plan of Treatment: 1.Follow up with PCP in 1 week Follow up with: PRIMARY CARE, [Primary Care Provider] - 7 Days Prescriptions: Insulin NPH Hum/Reg Insulin Hm [Humulin 70-30 Vial] 20 unit SQ BID #1 vial
== END 2021-09-09 17:36 | disposition home or self-care (01) | DRG 638 ==
LOC: ED 00:37 → 3A 04:49 → 4A 17:02 → OBSVTOIN 09-08 14:56
PROVIDERS: ADMIT Hospitalist; ATTEND Internal Medicine
DX: E10.65 Type 1 diabetes mellitus with hyperglycemia (principal); N17.9 Acute kidney failure, unspecified; Z91.19 Patient's noncompliance with other medical treatment and regimen; Z20.822 Contact with and (suspected) exposure to COVID-19
CPT/HCPCS: 36415; 71045; 80048; 80053; 80076; 81001; 82805; 82962; 83036; 85007; 85025; 85027; 87040; 87086; G0378; J1644; J1815; J2405; J7030